=== PATIENT | female | born 2005 | race Caucasian/White ===

== ENCOUNTER 2025-04-27 14:48 | Emergency (ER) | payer OTHER, SELFPAY ==
--- NOTE | ~2025-04-27 | XR_ITS ---
EXAMINATION: XR chest 2V DATE: 04/27/2025 17:12 INDICATION: Near syncope. Fall. TECHNIQUE: PA and lateral views of the chest were obtained. COMPARISON: None FINDINGS: The lungs are clear with no focal airspace opacities, pulmonary edema, pleural effusion or pneumothorax. The cardiomediastinal silhouette is normal. Visualized bones and soft tissues are unremarkable. IMPRESSION: 1. No acute cardiopulmonary disease. Reviewed, dictated and finalized at location A. CONSULTING MANAGER
--- NOTE | ~2025-04-27 | XR_ITS ---
EXAMINATION: XR knee LT 3V DATE: 04/27/2025 17:12 INDICATION: Left knee pain post fall TECHNIQUE: Anteroposterior, oblique and crosstable lateral views of the left knee were obtained COMPARISON: None. FINDINGS: Alignment is normal. No fracture. Joint spaces appear normal on nonweightbearing imaging. No joint effusion/layering lipohemarthrosis. Soft tissues are unremarkable. IMPRESSION: 1. Negative left knee radiographs. Reviewed, dictated and finalized at location A. ER FITTER GAS
--- NOTE | ~2025-04-27 | CT_ITS ---
EXAMINATION: CT cervical spine wo con DATE: 04/27/2025 17:23 INDICATION: Fall with head injury TECHNIQUE: Computed tomography (CT) of the cervical spine was performed without intravenous contrast. Automated exposure control and iterative reconstruction technique were employed. The dose-length product was 476.63 mGy-cm. COMPARISON: None FINDINGS: 7 degrees cervical dextrocurvature. There is also mild reversal of the normal cervical lordosis which could be positional or due to muscle spasm. Vertebral body and disc heights are normal. 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 No central canal or neural foraminal stenosis. Cervical soft tissues are unremarkable. Visualized apices of lungs are clear. IMPRESSION: 1. Mild reversal of the normal cervical lordosis and 7 degree dextrocurvature which could be positional or due to muscle spasm. No other acute osseous abnormality. Reviewed, dictated and finalized at location A. TH AND SOCIAL CARE TEACHER IMPRESSION: 1. Mild reversal of the normal cervical lordosis and 7 degree dextrocurvature w hich could be positional or due to muscle spasm. No other acute osseous abnorma lity.
--- NOTE | ~2025-04-27 | CT_ITS ---
EXAMINATION: CT brain wo con DATE: 04/27/2025 17:16 INDICATION: Head injury. Near syncope. TECHNIQUE: Computed tomography (CT) of the head was performed without intravenous contrast. Sagittal and coronal reconstructions were performed. The mA was adjusted according to patient size. Iterative reconstruction technique was employed. The dose-length product was 605.33 mGy-cm. COMPARISON: None FINDINGS: No fracture. No acute intracranial hemorrhage, acute infarction or abnormal extra axial fluid collection. Ventricles are normal and symmetric. No mass/mass effect. The orbits, paranasal sinuses and mastoid air cells are normal. IMPRESSION: 1. Normal head CT. Reviewed, dictated and finalized at location A. FIC OPERATOR IMPRESSION: 1. Normal head CT.
[2025-04-27 14:49] VITALS: BP 131/73; PULSE 82; RESP 18; TEMP 36.9; O2SAT 100
--- OUTSIDE RECORDS SUMMARY | 2025-04-27 14:50 | XMS_ITS | Clinical Summary ---
Author Organization [facility] Address [address] [place] [address] Care Team Providers Care Valet Parking Attendant Name Role Phone Tenisha Fletcher MD Unavailable Sterling Monson MD [facility] Care Provider Source Comments [facility],non-owned Affiliates and Associated Physician Practices is amultiple site organization consisting of ambulatory clinics and hospital sitesin [place], [place], [place] and [place]. This disclosure is being madepursuant to the Care Everywhere program and may not contain all information available regarding this patient. Last updated 18.[facility] Allergies No known active allergies Medications * This document contains information received from the source organization and may not represent a complete record from that organization. * Be aware that medications may not be up to date on this document. Alwaysverify current medications with the patient. prazosin (MINIPRESS) 1 MG capsule Take 2 (two) capsules by mouth at bedtime Active etonogestrel (NEXPLANON) 68 MG implant 68 (sixty eight) mg by Subdermal route as directed Active omeprazole (PRILOSEC) 20 MG capsule Take 1 (one) capsule by mouth daily before breakfast Active sertraline (ZOLOFT) 25 MG tablet Take 1 (one) tablet by mouth once daily Active traZODone (DESYREL) 50 MG tablet Take 1 (one) tablet by mouth at bedtime Active QUEtiapine (SEROQUEL) 25 MG tablet Take 1 (one) tablet by mouth once daily 1 Active amoxicillin-cla vulanate (Augmentin) 875-125 MG tablet Take 1 (one) tablet by mouth 2 times daily FOR 10 DAYS 3 Active erythromycin (Romycin) 5 MG/GM ophthalmic ointment APPLY 1 LAYER TO BOTH UPPER EYELIDS TWICE DAILY FOR 2 WEEKS. 3 Active solifenacin (Vesicare) 10 MG tablet Take 1 (one) tablet by mouth once daily 30 tablet 4 Active Active Problems Problem Noted Date Diagnosed Date Bladder dysfunction 09/27/2020 Assessment & Plan (09/16/2022 1:46 PM CDT): A&P - bladder and obesity. Ortiz has continued to improve with the addition of vesicare. She has continued to have urinary frequency but this is much improved. She has not had a UTI since prior to the last OV. She is only currently having rare episodes of urinary incontinence but states that this does not have a negative impact on her. Her exam is grossly baseline, still unable to fully palpate her abdomen due to her protuberance. To discontinue macrodantin - patient has not had any recent UTIs and to reinitiate this pending patient begins to have UTIs again. Follow up in one year pending patient has a continued need for Vesicare. Plan: Timed voiding, Double voiding, Urinary recommendations including: voiding posture and relaxation techniques, bladder dietary and fluid intake recommendations, hygiene recommendations, Bowel health recommendations and Pharmaceutical management: Vesicare and stop Macrodantin Assessment & Plan (10/04/2021 9:03 AM CDT): A&P - bladder and bowel dysfunction. Ortiz has continued to do well since starting daily nitrofurantoin. No continued UTIs. She is having more sporadic episodes of incontinence while awake as well as increased urinary frequency. She has demonstrated continued weight gain as well and palpating her abdomen is increasingly difficult due to protuberance. Otherwise, her exam is grossly baseline. Continued follow up recommended. Plan: Timed voiding, Urinary recommendations including: voiding posture and relaxation techniques, bladder dietary and fluid intake recommendations, hygiene recommendations and Pharmaceutical management: Vesicare Assessment & Plan (09/27/2020 5:44 PM CDT): A&P - bladder and bowel dysfunction and morbid obesity. Ortiz has mildly improved with regards to her episodes of urinary incontinence since she was last seen in clinic. She is not having episodes of urine leakage as often as she previously had. She was recently hospitalized for a UTI but had not had a UTI while she was on her previously prescribed prophylactic antibiotic. Exam is grossly baseline. Imaging reviewed today does not demonstrate an anatomic cause for her recurrent UTIs. She would likely benefit from pelvic floor therapy. Additionally, she continues to have a steady weight gain. This likely causes additional pressure on her bladder causing some of her episodes of urinary incontinence. She would benefit from an improved diet and activity program. 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 UA with >100 WBCs, concerning for UTI vs pyelonephritis. She requires admission for IV antibiotic therapy and continued evaluation. German susceptible E coli isolated from urine, will complete 14 day course of Keflex followed by Macrobid prophylaxis and follow-up with urology in one month. Largely resolved clinical exam, good pain control and p.o.. Stable for discharge. 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 UA with >100 WBCs, concerning for UTI vs pyelonephritis. She requires admission for IV antibiotic therapy and continued evaluation.Urine cx growing gram negative bacilli in gram negative bacilli. Antibiotics changed to Rocephin from ampicillin. Has some flank and abdominal pain. No rebound or rigidity. GC-chlamydia and trichomonas negative. Urology informed of patient's admission. 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 UA with >100 WBCs, concerning for UTI vs pyelonephritis. She requires admission for IV antibiotic therapy and continued evaluation. Plan: - Admit to general medicine, Dr. Gonsales - IV Ampicillin q6h - IVFs with D5 NS at 120 ml/hr - Tylenol 650 mg q4h for pain - Continue home meds Lexapro, Atarax, Seroquel, Prazosin and Calcium citrate - Blood and urine culture pending - G/C and chlamydia pending - Urology consult - Pulse oximetry - Cardiorespiratory monitoring - VS q8h - I/Os - Regular diet History of pyelonephritis 07/11/2020 Assessment & Plan (07/11/2020 9:10 AM CDT): A&P - history of febrile UTIs as a toddler and child, now hospitalized recently twice for pyelonephritis in the last 3 months with one episode concerning for urosepsis. 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 VCUG repeated today due to concern for possible false negative on last in 2013 due to continued concerns with UTIs, but this was WNL without VUR or other abnormalities and with complete bladder emptying. Ortiz has had vague abdominal complaints with nausea for some time, with history of renal scan in 2019 that demonstrated delayed flow of the right kidney which cleared with Lasix. Some symptoms have improved with treatment of gastritis and likely lactose intolerance, but others have persisted. I discussed the above with Dr. Swann and we agreed that with her ongoing symptoms, recurrent pyelonephritis, it is recommended to evaluate this further with imaging to see if there may be a crossing vessel causing intermittent obstruction or other anomaly such as ectopic ureter. Possible that pyelonephritis occurred due to long-term delayed treatment of UTI as well, so we discussed calling with first signs of UTI for testing and treatment. Prophylactic antibiotics until next office visit: nitrofurantoin. Return to clinic with MRA abdomen with sedation. Parents to call at first sign of any urinary tract infections or symptoms of urinary tract infections, including dysuria, hematuria, urgency, malodorous urine, frequency, suprapubic pain, flank pain, or fever. Urinary incontinence 07/11/2020 Assessment & Plan (07/11/2020 9:06 AM CDT): A&P - morbid obesity, recurrent urinary tract infections, daytime incontinence and primary symptom(s) of urgency, infrequent voiding and poor fluid intake. Urinary incontinence is not continuous and could have a few etiologies such as hygiene and posture with tunneling urine, stress incontinence with obesity, and urge incontinence with infrequent voiding. Not as likely to be ectopic ureter causing incontinence due to history of dry intervals. Timed voiding, 5 times daily as least Urinary recommendations including: voiding posture techniques, bladder dietary and fluid intake recommendations (64 ounces+ water), hygiene recommendations including wiggle and wick Future considerations: correspondence specialist or healthy weight program, pelvic floor therapy for possible stress incontinence Sepsis due to urinary tract infection 06/29/2020 Assessment & Plan (07/01/2020 9:47 AM AERONAUTICAL ENGINEER): Assessment: Ortiz Alvares is a 15 year old female with history of duplicated R renal collecting system who presents with history, exam, and laboratory workup consistent with sepsis in the setting of likely pyelonephritis. Patient noted to be tachycardic, febrile, and intermittently hypotensive on admission concerning for possible septic shock. She responded well to fluid resuscitation. Has had some intermittent softer pressures while sleeping, but remaining well perfused, alert, oriented and BPs come up when awake. Of note, patient has had recent COVID infection. Workup thus far in the setting of her history is highly suspicious for UTI as primary diagnosis. However, if not showing clinical improvement and continue having issues with hypotension and fevers, despite fluid resuscitation, would consider MIS-C as possibility. Plan: -VS Q4H -CR Monitors -Manual Blood Pressures only Please -Monitor vitals closely, administer NS bolus as needed -SLIV Assessment & Plan (06/30/2020 9:27 AM AERONAUTICAL ENGINEER): Assessment: Ortiz Alvares is a 15 year old female with history of duplicated R renal collecting system who presents with history, exam, and laboratory workup consistent with sepsis in the setting of likely pyelonephritis. Patient noted to be tachycardic, febrile, and intermittently hypotensive on admission concerning for possible septic shock. Hypotension has been responsive to IV fluid boluses thus far. Of note, patient has had recent COVID infection. Workup thus far in the setting of her history is highly suspicious for UTI as primary diagnosis. However, if not showing clinical improvement and continue having issues with hypotension and fevers, despite fluid resuscitation, would consider MIS-C as possibility. Plan: -VS Q4H -CR Monitors -Manual Blood Pressures only Please -Monitor vitals closely, administer NS bolus as needed -Continue mIVF Acute pyelonephritis 05/04/2020 Assessment & Plan (07/01/2020 9:48 AM AERONAUTICAL ENGINEER): Assessment: 15 year old female with history of duplicated Right renal collecting system, congenital R hydroureteronephrosis and anxiety/depression who presented to the ED with concerns of fevers, dysuria, nausea/vomiting, flank and abdominal pain. Noted to have CVA tenderness on exam and was hypotensive in the ED before receiving 2L of NS boluses. Work up showed leucocytosis with neutrophilic predominance (WBC 13.5, N 92%), elevated inflammatory markers (CRP 5.7 and ESR 24). Urine HCG was negative. UA suggestive of infection (proteinuria, hematuria, 3+ leucocytes, >100 WBC, 1+ bacteria) and urine culture is pending. CT abdomen/pelvis was done to rule out perinephric abscess and showed R-sided hydroureteronephrosis without abscess on prelim read. Patient received a dose of tylenol, zofran and 2 g dose of Rocephin in the ED. Presentation and workup consistent with acute pyelonephritis. Urine Cx positive for german-senstive E. Coli. Plan: - SLIV - Tylenol q4H PRN for fever/pain - VS q4h - Strict I/O's - Regular diet as tolerated. - Cardiorespiratory monitoring - Transition to PO Keflex for 10 additional days after discharge - Continue home meds - Follow Blood Culture (Though pre-treated with Rocephin) - Urology will follow as outpatient for VCUG - Will need prophylactic antibiotics (nitrofurantoin or Bactrim) once tx course is complete Assessment & Plan (06/30/2020 9:29 AM AERONAUTICAL ENGINEER): Assessment: 15 year old female with history of duplicated Right renal collecting system, congenital R hydroureteronephrosis and anxiety/depression who presented to the ED with concerns of fevers, dysuria, nausea/vomiting, flank and abdominal pain. Noted to have CVA tenderness on exam and was hypotensive in the ED before receiving 2L of NS boluses. Work up showed leucocytosis with neutrophilic predominance (WBC 13.5, N 92%), elevated inflammatory markers (CRP 5.7 and ESR 24). Urine HCG was negative. UA suggestive of infection (proteinuria, hematuria, 3+ leucocytes, >100 WBC, 1+ bacteria) and urine culture is pending. CT abdomen/pelvis was done to rule out perinephric abscess and showed R-sided hydroureteronephrosis without abscess on prelim read. Patient received a dose of tylenol, zofran and 2 g dose of Rocephin in the ED. Presentation and workup consistent with acute pyelonephritis. Urine Cx positive for german-senstive E. Coli. Plan: - mIVFs with D5 NS w/ 20K @125ml/hr - Tylenol q4H PRN for fever/pain - VS q4h - Strict I/O's - Regular diet as tolerated. - Cardiorespiratory monitoring - Abx switched to ceftazidime yesterday for broadened coverage but today will switch back to IV Rocephin 2g q24H (first dose @2212 on 06/28) given german-sensitivity - Continue home meds - Follow Blood Culture (Though pre-treated with Rocephin) - Urology will follow as outpatient for VCUG - Will need prophylactic antibiotics (nitrofurantoin or Bactrim) once tx course is complete Assessment & Plan (06/29/2020 3:27 AM AERONAUTICAL ENGINEER): Assessment: 15 year old female with history of duplicated Right renal collecting system, congenital R hydroureteronephrosis and anxiety/depression who presented to the ED with concerns of fevers, dysuria, nausea/vomiting, flank and abdominal pain. Noted to have CVA tenderness on exam and was hypotensive in the ED before receiving 2L of NS boluses. Work up showed leucocytosis with neutrophilic predominance (WBC 13.5, N 92%), elevated inflammatory markers (CRP 5.7 and ESR 24). Urine HCG was negative. UA suggestive of infection (proteinuria, hematuria, 3+ leucocytes, >100 WBC, 1+ bacteria) and urine culture is pending. CT abdomen/pelvis was done to rule out perinephric abscess and showed R-sided hydroureteronephrosis without abscess on prelim read. Patient received a dose of tylenol, zofran and 2 g dose of Rocephin in the ED. Presentation and workup consistent with acute pyelonephritis. Other differentials include renal vs perinephric vs tubo-ovarian abscess (although unlikely given preliminary CT read), urethritis 2/2 STI, PID, appendicitis Of note, pt has past history of pyelonephritis (last grew german-susceptible E. coli) Plan: - Admit to General Medicine, Dr. Guzman - mIVFs with D5 NS w/ 20K @125ml/hr - Tylenol q4H PRN for fever/pain - VS q8h - Strict I/O's - Regular diet as tolerated. - Cardiorespiratory monitoring - Continue IV Rocephin 2g q24H (first dose @2212 on 06/28) - Continue home meds - Follow official CT scan read. - Labs including STI screen for GC/chalmydia and urine culture results. Assessment & Plan (05/05/2020 3:49 AM AERONAUTICAL ENGINEER): Assessment: 15 year old female with history of duplicated right renal collecting system and anxiety who was transferred from an OSH with concerns for acute pyelonephritis. She was recently diagnosed with a UTI 2 days ago, was prescribed keflex but only took one dose before returning to the hospital for worsening symptoms including tactile fevers, nausea, and low back pain. Patient had a fever (up to 103.4) at the OSH and endorses CVA tenderness. Patient received 2g dose of Rocephin at the OSH. Plan: - Admit to General Medicine, Dr. Ramsey - IVFs with D5 1/2 NS at 150 ml/hr - Alternating tylenol and motrin PRN for pain - Continue home meds - Labs including - UA - Pulse oximetry - Cardiorespiratory monitoring - VS q8h - I/Os - Regular diet - 2g Rocephin dose to be given 24hr from previous dose (last dose given @1730 on 05/04) Abdominal pain 09/04/2018 Acute gastritis without hemorrhage 12/05/2017 Assessment & Plan (12/05/2017 1:10 PM CDT): Pt with recent h/o costochondritis, treated with Ibuprofen, now with midline chest pain, nausea, change in appetite, worse at night when lying down. Concern for gastritis. Discussed supportive care, dietary changes, call if symptoms worsen, blood in stool or vomit, no improvement with starting Nexium. F/u in 1-2 weeks if no improvement in symptoms. Irregular periods 12/05/2017 Assessment & Plan (12/05/2017 1:14 PM CDT): Pt with previously regular periods, now with 2 periods in the past month. Concern for recent hot flashes for the past 2 weeks. Will obtain Thyroid levels today, if normal, refer to Adolescent. Hot flashes 12/04/2017 Assessment & Plan (12/05/2017 1:22 PM CDT): Pt with recent change, over the past 2 weeks, with feeling hot and flushed. At this time, she gets dizzy. No chest pain, no palpitations, no syncope. + night sweating See also irregular periods. Orthostatic BP normal here. Urine test negative. Will obtain: CMP, CBC, Thyroid levels. Consider EKG and refer to Adolescent if normal labs. Well adolescent visit 10/13/2017 Assessment & Plan (10/13/2017 1:12 PM CDT): Ortiz Alvares is here for her adolescent well child check and has obesity and normal development. Immunizations up to date - per mom. Dental referral for prevention Age appropriate anticipatory guidance provided Return for next well child check; sooner if concerns arise. Folliculitis of both axillae 10/13/2017 Assessment & Plan (10/13/2017 1:13 PM CDT): Bactroban Obesity (BMI 35.0-39.9 without comorbidity) 09/26 Assessment & Plan (10/13/2017 1:14 PM CDT): Discussed diet and exercise. Target no sugary drinks and increased daily exercise Goal no weight gain in next 6-12 months. 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 Vitals with tachycardia and intermittent hypotension that has responded to fluid boluses. Clinically appeared dehydrated. Improved with fluid resuscitation. Resolved. Assessment & Plan (06/29/2020 7:36 AM AERONAUTICAL ENGINEER): Assessment: Patient with poor PO intake and GI losses with frequent emesis and decreased UOP concerning for dehydration. Vitals with tachycardia and intermittent hypotension that has responded to fluid boluses. Clinically appears dehydrated. Requires IV fluids for further management. Plan: -mIVF -Strict I/Os -Assess need for repeat NS bolus Immunizations Immunization Administration Dates Next Due INFLUENZA VACCINE, QUADR. (F LUZONE; FLULAVAL; FLUARIX; AFLURIA QUADRIVALENT; 6MO+), 0.5 ML (IIV4) 07/01/2020(Deferred: Refused-Parent/Guardian) Family History Medical History Relation Name Comments Diabetes - Type 2 Maternal Grandfather Diabetes - Type 2 Maternal Grandmother None Known Mother Relation Name Status Comments Maternal Grandfather Maternal Grandmother Mother Social History Tobacco Use Types Packs/Day Years Used Date Smoking Tobacco: Passive Smo ke Exposure - Never Smoker Smokeless Tobacco: Never Tobacco Cessation:Counseling Given: No Alcohol Use Standard Drinks/Week Comments Never 0 (1 standard drink = 0.6 oz pur e alcohol) AUDIT-C Answer Date Recorded Q1: How often do you have a drink containing alcohol? Never 12/29/2022 Q2: How many drinks containi ng alcohol do you have on a typical day when you are drinking? Patient does not drink Q3: How often do you have si x or more drinks on one occasion? Never 12/29/2022 Comments No Sex and Gender Information Value Date Recorded Sex Assigned at Not on file Legal Sex Female 11:11 PM CDT Gender Identity Not on file Sexual Orientation Not on file Last Filed Vital Signs Vital Sign Reading Time Taken Comments Blood Pressure 125/65 12/29/2022 10:32 PM CDT Pulse 80 12/29/2022 10:29 PM CDT Temperature 37 C (98.6 F) 12/29/2022 10:29 PM CDT Respiratory Rate 20 12/29/2022 10:2 9 PM CDT Oxygen Saturation 98% 12/29/2022 10: 29 PM CDT Inhaled Oxygen Concentration 100% 07/2019 12:25 PM AERONAUTICAL ENGINEER Weight 130.2 kg (287 lb 0.6 oz) 023 10:35 PM CDT Height 166.5 cm (5' 5.55) 09/16/2022 8:21 AM CD T Body Mass Index 46.97 09/16/2022 8:21 AM CDT Plan of Treatment Health Maintenance Due Date Last Done Comments HIV SCREENING 2018 HPV VACCINE (1 - 3-dose series) 2018 MENINGOCOCCAL (Group B) VACCINE SHARED DECISION-MAKING (1 of 2 - Standard) 2019 HEPATITIS C SCREENING 01/05/2021 CHLAMYDIA/GONORRHEA SCREENING 08/19/2021 08/19/2020, 06/29/2020, 05/05/2020 DTAP/TDAP/TD VACCINES (1 - Tdap) 2022 HEPATITIS B VACCINE (1 of 3 - 19+ 3-dose series) 2022 PAP SMEAR 01/11/2024 DEPRESSION SCREENING 04/28/2024 10/13/2017 COVID-19 VACCINE (2024- season) 2024 INFLUENZA VACCINE (#1) 2024 9, 02/22/2015, 03/03/2014, Additional history exists ZOSTER VACCINE (1 of 2) 2053 HIB VACCINE Aged Out No longer eligi ble based on patient's age to complete this topic MENINGOCOCCAL GROUPS A/C/Y/W VACCINE Aged Out No longer eligible based on patient's age to complete this topic PNEUMOCOCCAL VACCINE Aged Out No long er eligible based on patient's age to complete this topic Medical Devices Implanted Type Area Automatic Lathe Operator Device Identifier Shelf Expiration Date Model / Serial / Lot Graft Bone Alfs Dbm 5ml Ptty Frzdr Implanted:Qty: 1 on 04/10/2017 by Stef Underwood MD at [facility] Left: Leg Nuvasive 06/26/2018 [id number] / / [id number] Procedures Procedure Name Priority Date/Time Associated Diagnosis Comments CHLAMYDIA + GC AMPLIFIED PROBE STAT 08/19/2020 10:10 PM CDT from Last 3 Months or Most Recently Relevant to Health Maintenance Results * CHLAMYDIA + GC AMPLIFIED PROBE (STL) (08/19/2020 10:10 PM CDT) Chlamydia Amplified Probe Negative Negative 08/20/2020 10:20 AM CDT [facility] GC Amplified Probe Negative Negative 08/20/2020 10:20 AM CDT [facility] Microbiology URINE / Unknown Collection / Unknown 08/19/2020 10:10 PM CDT 08/19/2020 10:24 PM CDT Narrative [facility] - 08/20/2020 10:20 AM CDT Results based on detection/no detection of ribosomal RNA by amplified method. us Ronnie Sandy MD LAB - MICROBIOLOGY ORDERABLES Final Result [facility] [address] [place] [address], [facility] [phone] from Last 3 Months or Most Recently Relevant to Health Maintenance Insurance [facility] Advance Directives * Full Code (Latest Code Status on File) Date Activated Date Inactivated Comments 08/19/2020 11:45 PM 08/21/2020 5:08 PM * Full Code Date Activated Date Inactivated Comments 06/29/2020 10:58 AM 07/01/2020 2:21 PM * Full Code Date Activated Date Inactivated Comments 05/05/2020 2:58 AM 05/05/2020 6:49 PM Care Teams Valet Parking Attendant Relationship Specialty Start Date End Date Sterling Monson MD [address] [place] [phone] PCP - General 12/07/20 Tenisha Fletcher MD [address] [place] [address] Student Resident 10/26/17
--- OUTSIDE RECORDS SUMMARY | 2025-04-27 14:50 | XMS_ITS | Encounter Summary ---
Author Organization [facility] Address [address] [place] [address] Care Team Providers Care Trolley Operator Name Role Phone Tenisha Fletcher MD Unavailable Sterling Monson MD [facility] Care Provider Encounter Details Date Type Department Care Team (Late st Contact Info) Description 08/10/2021 Telephone [facility] Pediatric[facility] - Urology [address] [place] [id number] Christine Velazco PA-C [address] [place] [phone] Social History Tobacco Use Types Packs/Day Years Used Date Smoking Tobacco: Passive Smo ke Exposure - Never Smoker Smokeless Tobacco: Never Alcohol Use Standard Drinks/Week Comments Never 0 (1 standard drink = 0.6 oz pur e alcohol) Comments No Sex and Gender Information Value Date Recorded Sex Assigned at Not on file Legal Sex Female 11:11 PM CDT Gender Identity Not on file Sexual Orientation Not on file documented as of this encounter Functional Status * Is person deaf or have serious hearing difficulty? Answer Date of Assessment Author No 08/19/2020 11:40 PM CDT Nadia Edmond RN * Is person blind or have serious difficulty seeing? Answer Date of Assessment Author No 08/19/2020 11:40 PM CDT Nadia Edmond RN * Does person have serious difficulty walking/climbing stairs? Answer Date of Assessment Author No 08/19/2020 11:40 PM CDT Nadia Edmond RN * Does person have difficulty dressing/bathing? Answer Date of Assessment Author No 08/19/2020 11:40 PM CDT Nadia Edmond RN * Does person have difficulty doing errands alone? Answer Date of Assessment Author No 08/19/2020 11:40 PM CDT Nadia Edmond RN documented as of this encounter Mental Status * Does person have difficulty concentrating/remembering/making decisions? Answer Entry Date Author No 08/19/2020 11:40 PM CDT Nadia Edmond RN documented in this encounter Miscellaneous Notes * Telephone Encounter - Gricel Estes RN - 08/10/2021 9:12 AM CDT Scheduled patient for appointment on August 30, 2021 at 0945 with KIRK Umaña. Instructed patient to come with a full bladder. documented in this encounter Plan of Treatment Not on file documented as of this encounter Visit Diagnoses Not on filedocumented in this encounter Care Teams Trolley Operator Relationship Specialty Start Date End Date Sterling Monson MD [address] [place] [phone] PCP - General 12/07/20 Tenisha Fletcher MD [address] [place] [address] Student Resident 10/26/17 documented as of this encounter
--- OUTSIDE RECORDS SUMMARY | 2025-04-27 14:50 | XMS_ITS | Encounter Summary ---
Author Organization [facility] Address [address] [facility] [place] [address] Care Team Providers Care Associate Embalmer/Funeral Director Name Role Phone Tenisha Fletcher MD Unavailable Sterling Monson MD Prima ry Care Provider Unknown, Provider Primary Care Provider Unavaila ble Sterling Monson MD Prima ry Care Provider Encounter Details Date Type Department Care Team (Late st Contact Info) Description 05/31/2019 Telephone [facility] Pediatrics - [address] [phone] Mirna Shin MD [address] [place] [phone] Social History Tobacco Use Types Packs/Day Years Used Date Smoking Tobacco: Never Smokeless Tobacco: Never Alcohol Use Standard Drinks/Week Comments No 0 (1 standard drink = 0.6 oz pur e alcohol) Comments No Sex and Gender Information Value Date Recorded Sex Assigned at Not on file Legal Sex Female 11:11 PM CDT Gender Identity Not on file Sexual Orientation Not on file documented as of this encounter Miscellaneous Notes * Telephone Encounter - Charley Rehman RN - 06/07/2019 3:56 PM CLINICAL PHARMACY TECHNICIAN Verified orders in epic. Prep letter mailed to home address. ICAL PHARMACY TECHNICIAN * Telephone Encounter - Staci Milner - 06/07/2019 2:49 PM CST EGD/Colon rescheduled for Friday06/30/19 at 11:[address] Shin. Mom already has all instructions. ICAL PHARMACY TECHNICIAN * Telephone Encounter - Staci Milner - 05/31/2019 3:52 PM CST Endo called to have us reschedule pt's EGD/Colon, since pt did not perform any of the prep. Mom's NEW number is [phone]. ICAL PHARMACY TECHNICIAN documented in this encounter Plan of Treatment Not on file documented as of this encounter Visit Diagnoses Not on filedocumented in this encounter Care Teams Associate Embalmer/Funeral Director Relationship Specialty Start Date End Date Sterling Monson MD [address] [place] [phone] PCP - General Pediatrics 07/27/18 09/20/20 Unknown, Provider [address] [place] [phone] PCP - General 11/29/2012/06 Sterling Monson MD [address] [place] [phone] PCP - General 12/07/20 Tenisha Fletcher MD [facility] [place] [phone] Student Resident 10/26/17 documented as of this encounter
--- OUTSIDE RECORDS SUMMARY | 2025-04-27 14:50 | XMS_ITS | Data Portability ---
Author Organization [place] [facility] [employer], Main Office Address [address] [place] [address] Care Team Providers Care Track Repair Worker Name Role Phone STALIN HELM Primary Care Provider STALIN HELM Referring Provider [phone] Assessment No assessment recorded. Plan of Treatment Reminders Order Date Submit Date Provider Last Modified By Organization Details Last Modified Time Details Appointments None recorded. Lab STEFANIE (antinuclea r antibodies) screen, ifa, serum 2024 025 [place] [address] 4 [facility] (Lab), [address] [place], [address], 5 11:40:23 ccp (cyclic citrullinat ed peptide) iga+igg, serum 2024 025 [email or web address] 4 [facility] (Lab), [address] [place], [address], 5 11:40:01 rf (rheumatoid factor), serum 2024 025 [place] [address] 4 [facility] (Lab), [address] [place], [address], 5 11:39:39 vitamin D, 25-hydroxy, total, serum 2023 024 [email or web address] 2 [facility] (Lab), [address] [place], [address], 4 08:50:45 vitamin B12 + folate, serum or blood 2023 024 [email or web address] 2 [facility] (Lab), [address] [place], [address], 4 08:50:45 lipid panel, serum [address] (Lab), [address] [place], [address], 3 11:35:51 CMP, serum or plasma [address] (Lab), [address] [place], [address], 3 11:35:51 CK (creatine kinase), total, serum [address] (Lab), [address] [place], [address], 3 11:35:51 vitamin B12 + folate, serum or blood [address] (Lab), [address] [place], [address], 3 11:35:50 vitamin D, 25-hydroxy, total, serum [address] (Lab), [address] [place], [address], 3 11:35:50 magnesium, serum or plasma [address] (Lab), [address] [place], [address], 3 11:35:50 TSH, serum or plasma [address] (Lab), [address] [place], [address], 3 11:35:51 glycohemogl obin, total, blood 2022 023 [email or web address] 11 [facility] ([facility]), [address], [place], [address], 3 11:35:50 Referral gynecologis t referral - Needs a pap smear . Thank you 2022 023 [email or web address] Zeina Medina MD, [address], [address], [place], [address], 4 10:03:34 Procedures None recorded. Surgeries None recorded. Imaging None recorded. Medication Orders ondansetron 8 mg disintegrat ing tablet 2024 025 [facility] #84846, [address], [id number], 5 09:53:23 Depo-Medrol 80 mg/mL suspension for injection 2024 025 [email or web address] 4 Not available 5 10:06:24 prednisone 20 mg tablet 2024 025 [facility] #98994, [address] , [place], [place], [id number], 5 09:55:14 cyclobenzap rine 10 mg tablet 2024 025 [facility] #05559, [address] , [place], [place], [id number], 5 09:56:09 metronidazo le 0.75 % topical gel 2024 025 [email or web address] 4 [facility] #90643, [address] , [place], [place], [id number], 5 09:39:22 pantoprazol e 40 mg tablet,she yed release 2024 025 [facility] #14168, [address], [place], [place], [id number], 5 09:26:49 buspirone 10 mg tablet [email or web address] [place] [address] Store #50189, [address] [place], [id number], 5 09:39:14 solifenacin 10 mg tablet 2024 025 [facility] #37790, [address] [place], [id number], 5 09:26:48 cholecalcif aura (vitamin D3) 25 mcg (1,000 unit) tablet 2024 025 [facility] #44348, [address] [place], [id number], 5 09:26:47 bupropion HCl XL 150 mg 24 hr tablet, extended release 2024 025 [facility] #08379, [address] [place], [id number], 5 09:27:01 cyanocobala min (vit B-12) 1,000 mcg sublingual tablet 2024 025 [facility] #40581, [address] [place], [id number], 5 09:26:47 solifenacin 10 mg tablet 2023 024 [facility] #39135, [address] [place], [id number], 4 14:19:49 losartan 25 mg tablet 2023 [facility] #82953, [address], [place], [place], [id number], 4 11:06:13 cholecalcif aura (vitamin D3) 25 mcg (1,000 unit) tablet 2023 [facility] #99818, [address], [place], [place], [id number], 4 11:06:11 bupropion HCl XL 150 mg 24 hr tablet, extended release 2023 [facility] #08247, [address], [place], [place], [id number], 4 11:06:12 cyanocobala min (vit B-12) 1,000 mcg sublingual tablet 2023 024 [facility] #17012, [address], [place], [place], [id number], 4 11:06:10 cholecalcif aura (vitamin D3) 25 mcg (1,000 unit) tablet 2022 023 [facility] #36723, [address], [place], [place], [id number], 3 10:45:47 cyanocobala min (vit B-12) 1,000 mcg sublingual tablet 2022 023 [facility] #23521, [address], [place], [place], [id number], 3 10:46:42 losartan 25 mg tablet 2022 023 [facility] #28957, [address], [place], [place], [id number], 3 10:44:51 bupropion HCl XL 150 mg 24 hr tablet, extended release 2022 023 [facility] #47619, [address], [place], [place], [id number], 3 10:44:52 Patient TargetsNo targets recorded. Patient Instructions Encounter Date Encounter Id Patient Instructions Last Modified By Organization Details Last Modified Time 07/05/2024 [id number] counseled , good insight, no si/hi. get Sandeep headspace or Insight Timer . 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 Thank you Referring Physician: Stalin Helm, Family Medicine, Encounter Date: 04/10/2023 Results Created Date Observation Date Name Description Value Unit Range Abnormal Flag Note LastModifiedBy Organization Detail LastModifiedTime Result Notes None recorded. Problems Name Problem SNOMED Code Status Onset Date Resolution Date Notes Provider Name and Address Organization Details Recorded Time Essential hypertension 93548971 Active 2022 NAMAN Mosqueda [email or web address], [place], [address], [facility] 3 11:44:15 Administration of influenza vaccine Active 2022 NAMAN Mosqueda [address], [address], [place], [address], [facility] 3 11:45:57 Depressive disorder 54661211 Active 2022 NAMAN Mosqueda [address], [address], [place], [address], [facility] 3 10:43:44 At increased risk of nutritional deficit 838340368 Active 2022 NAMAN Mosqueda [address], [address], [place], [address], [place] [facility] 3 10:47:30 Family history of diabetes mellitus 575161794 Active 2022 both sides NAMAN Mosqueda [address], [address], [place], [address], [place] [facility] 3 10:51:06 Hyperlipidemia screening Active 2022 NAMAN Mosqueda [address], [address], [place], [address], [place] [facility] 3 10:49:32 Vitamin D below reference range 847014427 Active 2022 NAMAN Mosqueda [address], [address], [place], [address], [place] [facility] 3 10:44:54 Serum vitamin B12 below reference range 643040385 Active 2022 NAMAN Mosqueda [address], [address], [place], [address], [place] [facility] 3 10:45:58 Screening for malignant neoplasm of cervix Active 2022 NAMAN Mosqueda [address], [address], [place], [address], [place] [facility] 3 10:47:33 Overactive urinary bladder 560657413 Active 2023 NAMAN Mosqueda [address], [address], [place], [address], [place] [facility] 4 14:18:29 Rosacea 375497686 Active 2024 NAMAN Mosqueda [address], [address], [place], [address], [place] [facility] 5 09:21:38 Anxiety 15450408 Active 2024 NAMAN Mosqueda [address], [address], [place], [address], [facility] 5 09:21:59 Gastroesophage al reflux disease 241047644 Active 2024 NAMAN Mosqueda [address], [address], [place], [address], [facility] 5 09:25:42 Dry eyes 417257675 Active 2024 NAMAN Mosqueda [address], [address], [place], [address], [facility] 5 09:27:02 Adult health examination Active 2024 NAMAN Mosqueda [address], [address], [place], [address], [facility] 5 16:03:50 Nausea 252063041 Active 2024 NAMAN Mosqueda [address], [address], [place], [address], [facility] 5 09:52:38 Strain of fascia of neck 337142434 Active 2024 NAMAN Mosqueda [address], [address], [place], [address], [facility] 5 09:53:47 Notes:on [employer], to be re moved in April 2023 Problem Notes None recorded. Medical Equipment None Reported. Allergies No known drug allergies Medications Name Sig Start Date Stop Date Status Note LastModified by Organization Details LastModified Time quetiapin e 25 mg tablet 02/13 completed Not Available Not Available Not Available cyclobenz aprine 10 mg tablet TAKE 1 TABLET BY MOUTH EVERY DAY AT BEDTIME active Not Available Not Available No t Available amoxicill in 500 mg capsule TAKE ONE CAPSULE BY MOUTH EVERY 8 HOURS FOR 10 DAYS 09/14 completed Not Available Not Available Not Available clindamyc in HCl 300 mg capsule TAKE 1 CAPSULE BY MOUTH EVERY 6 HOURS FOR 10 DAYS 02/13 completed Not Available Not Available Not Available citalopra m 40 mg tablet 02/13 completed Not Available Not Available Not Available trazodone 50 mg tablet 02/13 completed Not Available Not Available Not Available triamcino lone acetonide 0.5 % topical cream 02/13 completed Not Available Not Available Not Available ibuprofen 800 mg tablet TAKE 1 TABLET BY MOUTH THREE TIMES DAILY 02/13 completed Not Available Not Available Not Available citalopra m 10 mg tablet 02/13 completed Not Available Not Available Not Available hydrocodo ne 5 mg-acetam inophen 325 mg tablet TAKE 1 TABLET BY MOUTH EVERY 6 HOURS NEEDED FOR PAIN 09/14 completed Not Available Not Available Not Available prazosin 1 mg capsule 02/13 completed Not Available Not Available Not Available prednison e 20 mg tablet TAKE 2 TWICE DAILY X2 DAYS THEN 1 TWICE DAILY X5 DAYS THEN 1/2 TWICE DAILY X2 DAYS THEN 1/2 X1 DAY. 2ND DOSE AT NOON DAILY active Not Available Not Available No t Available hydroxyzi ne HCl 50 mg tablet 02/13 completed Not Available Not Available Not Available ciproflox acin 500 mg tablet TAKE 1 TABLET BY MOUTH EVERY 12 HOURS FOR 3 DAYS 07/05 completed Not Available Not Available Not Available quetiapin e 100 mg tablet 02/13 completed Not Available Not Available Not Available bupropion HCl SR 100 mg tablet,12 hr sustained -release 02/13 completed Not Available Not Available Not Available ondansetr on 8 mg disintegr ating tablet DISSOLVE 1 TABLET ON THE TONGUE TWICE DAILY NEEDED active Not Available Not Available No t Available Depo-Medr ol 80 mg/mL suspensio n for injection Take 1 mL by injectio n route. 2024 active Not Available Not Available Not Avai lable meloxicam 7.5 mg tablet 02/13 completed Not Available Not Available Not Available citalopra m 20 mg tablet 02/13 completed Not Available Not Available Not Available Nortrel 1/35 (28) 1 mg-35 mcg tablet 02/13 completed Not Available Not Available Not Available trazodone 100 mg tablet 02/13 completed Not Available Not Available Not Available pantopraz ole 40 mg tablet,de layed release TAKE 1 TABLET BY MOUTH EVERY DAY BEFORE A MEAL active Not Available Not Available No t Available erythromy andrea 5 mg/gram (0.5 %) eye ointment APPLY 1 LAYER TO BOTH UPPER EYELIDS TWICE DAILY FOR 2 WEEKS. 07/05 completed Not Available Not Available Not Available neomycin- polymyxin -dexameth 3.5 mg/mL-10, 000 unit/mL-0 .1% eye drops SHAKE LIQUID AND INSTILL 1 DROP IN BOTH EYES TWICE DAILY active Not Available Not Available No t Available buspirone 10 mg tablet Take 1 tablet twice a day by oral route after meal(s) for 30 days. 09/14 completed Not Available Not Available Not Available hyoscyami ne 0.125 mg sublingua l tablet 02/13 completed Not Available Not Available Not Available losartan 25 mg tablet active Not Available Not Available Not Available omeprazol e 20 mg capsule,d elayed release 02/13 completed Not Available Not Available Not Available cyanocoba ahsan (vit B-12) 1,000 mcg sublingua l tablet Place 1 tablet twice a day by sublingu al route for 30 days. 2024 active Not Available Not Available Not Avai lable mupirocin 2 % topical ointment 02/13 completed Not Available Not Available Not Available gabapenti n 100 mg capsule 02/13 completed Not Available Not Available Not Available ibuprofen 600 mg tablet TAKE 1 TABLET BY MOUTH EVERY 6 HOURS NEEDED WITH FOOD 02/13 completed Not Available Not Available Not Available polyethyl demarco glycol 3350 17 gram/dose oral powder 02/13 completed Not Available Not Available Not Available SSD 1 % topical cream 02/13 completed Not Available Not Available Not Available hydroxyzi ne HCl 10 mg tablet 02/13 completed Not Available Not Available Not Available sertralin e 50 mg tablet 02/13 completed Not Available Not Available Not Available metronida zole 0.75 % topical gel APPLY A THIN LAYER TO THE AFFECTED AREA(S) face BY TOPICAL ROUTE 2 TIMES PER DAY IN THE MORNING AND EVENING 09/14 completed Not Available Not Available Not Available loratadin e 10 mg tablet 02/13 completed Not Available Not Available Not Available amoxicill in 875 mg-potass ium clavulana te 125 mg tablet TAKE 1 TABLET BY MOUTH TWICE DAILY FOR 7 DAYS 02/13 completed Not Available Not Available Not Available buspirone 15 mg tablet 02/13 completed Not Available Not Available Not Available hydroxyzi ne pamoate 25 mg capsule 02/13 completed Not Available Not Available Not Available escitalop miller 20 mg tablet 02/13 completed Not Available Not Available Not Available bupropion HCl XL 150 mg 24 hr tablet, extended release TAKE 1 TABLET BY MOUTH EVERY DAY IN THE MORNING active Not Available Not Available No t Available solifenac in 10 mg tablet TAKE 1 TABLET BY MOUTH EVERY DAY active Not Available Not Available No t Available chlorhexi dine gluconate 0.12 % mouthwash SWISH AND SPIT 15 ML BY MOUTH FOR 30 SECONDS THREE TIMES DAILY FOR 7 DAYS 02/13 completed Not Available Not Available Not Available quetiapin e 50 mg tablet 02/13 completed Not Available Not Available Not Available cholecalc iferol (vitamin D3) 25 mcg (1,000 unit) tablet Take 1 tablet every day by oral route with meal(s) for 30 days. 2024 active Not Available Not Available Not Avai lable Estarylla 0.25 mg-0.035 mg tablet 02/22 completed has Nexplano n in left upper arm Not Available Not Available Not Available Nexium 24HR 20 mg capsule,d elayed release 02/13 completed Not Available Not Available Not Available Fluarix Quad (PF) 60 mcg (15 mcg x 4)/0.5 mL IM syringe 09/14 completed Not Available Not Available Not Available Vitals Date Recorded Body weight Heart rate Respiratory rate Oxygen saturation Body temperature Systolic And Diastolic Provider Name and Address Organization Details Last Updated DateTime 5 883079. 91 g 82 /min 18 /min 97 % 98.3 [degF] 128/80 mm[Hg] Esther Romoarity [place] [employer] [facility] [employer] [facility] 5 09:14:46 Date Recorded Body weight Body temperature Oxygen saturation Heart rate Systolic And Diastolic Provider Name and Address Organization Details Last Updated DateTime 5 526197. 79 g 97.3 [degF] 98 % 87 /min 122/84 mm[Hg] JOSHUA Dye [facility] [employer] [facility] 5 09:41:47 Date Recorded Body height Body mass index (BMI) [Percentile] Per age and sex Body mass index (BMI) Body weight Body temperature Heart rate Oxygen saturation Systolic And Diastolic Provider Name and Address Organization Details Last Updated DateTime 3 162.56 cm 99 % 48.7 kg/m2 787552. 23 g 97.9 [degF] 70 /min 98 % 122/88 mm[Hg] Patricia Cabrera [place] [employer] [facility] [employer] 3 10:30:38 Date Recorded Body height Body mass index (BMI) Body mass index (BMI) [Percentile] Per age and sex Body weight Body temperature Heart rate Oxygen saturation Systolic And Diastolic Provider Name and Address Organization Details Last Updated DateTime 3 162.56 cm 48.1 kg/m2 99 % 587722. 86 g 97.5 [degF] 90 /min 97 % 128/76 mm[Hg] Patricia Cabrera [place] [employer] [facility] [employer] 3 10:38:55 Social History Question Answer Notes LastModified by [employer] Details LastModified Time Tobacco Smoking Status Never Smoker Patricia Cabrera MA [facility] [employer] 02/13/2023 11:37:56 What Is Your Level Of Caffeine Consumption? Occasional [email or web address] Information not available 02/13/2023 Do You Use Your Seat Belt Or Car Seat Routinely? Yes [email or web address] Information not available 02/13/2023 Do You Participate In Social Media? No [email or web address] Information not available 02/13/2023 Sex: Unknown Functional Status Question Answer Note LastModified by [employer] Details LastModified Time Do you use any illicit or recreational drugs? No [email or web address] Information not available 02/13/2023 Do you or have you ever used any other forms of tobacco or nicotine? No Information not available 02/13/2023 What is your level of alcohol consumption? None [email or web address] Information not available 02/13/2023 Mental Status Question Answer Note LastModified by Organization D etails LastModified Time Do you feel stressed (tense, restless, nervous, or anxious, or unable to sleep at night)? [id number] [email or web address] Information not available 02/13/2023 Family History Nothing Reported. Medical History No medical history recorded. Gynecological HistoryNo gynecological history recorded. Obstetrics History GPAL:G 0 P 0 0 0 0 Immunizations Vaccine Type Date Status Note Provider Nam e and Address Organization Details Recorded Time Influenza, split virus, quadrivalent, PF 02/13/2023 completed NAMAN Mosqueda [address], [address], [place], [address], [facility] [employer] 02/17/2023 16:06:48 Past Encounters Encounter ID Performer Location Encounter Start Date Encounter Closed Date Diagnosis/Indication Diagnosis SNOMED-CT Code Diagnosis ICD10 Code Diagnosis IMO Codes Diagnosis Note [id number] Vinny Ureña MD [facility] [address] [place] [address] 02/13/2023 11:25:20 02/13/2023 12:01:21 Essential hypertension 29406775 I10 Administra tion of influenza vaccine 16836943 Z23 [id number] Vinny Ureña MD [facility] [place] [address] 03/13/2023 10:21:49 03/13/2023 10:52:56 Essential hypertension 80160823 I10 Depressive disorder 3548 9007 F32.A At replaced by [facility] risk of nutritional deficit 159192436 Z91.89 Family his tory of diabetes mellitus 549655880 Z83.3 Hyperlipid emia screening 065415144 Z13.544 [id number] Vinny Ureña MD [facility] [address] [place] [address] 04/10/2023 10:33:27 04/10/2023 10:50:59 Vitamin D below reference range 861385263 E55.9 Serum serenity min B12 below reference range 221589310 R79.89 Screening for malignant neoplasm of cervix 067234412 Z12.4 [id number] Fransico Xie MD [facility] [address] [place] [address] 02/23/2024 10:50:28 02/23/2024 11:17:49 Essential hypertension 68217706 I10 Serum serenity min B12 below reference range 140772085 R79.89 Vitamin D below reference range 009891778 E55.9 Depressive disorder 3548 9007 F32.A Overactive urinary bladder 639511670 N32.81 [id number] Fransico Xie MD [address] [address] 07/05/2024 09:06:38 07/05/2024 16:47:34 Anxiety 98656088 F41.9 Essential hypertension 20635442 I10 Rosacea 047487892 L71.9 Depressive disorder 3548 9007 F32.A Vitamin D below reference range 923471620 E55.9 Serum serenity min B12 below reference range 382949486 R79.89 Overactive urinary bladder 973075432 N32.81 Gastroesop hageal reflux disease 618567441 K21.9 Dry eyes 917538602 H04.1 23 Adult heal th examination 634183489 Z00.00 [id number] Fransico Xie MD [facility]_[address] [address] 09/14/2024 09:33:53 09/14/2024 10:23:31 Nausea 055007920 R11.0 19451579 Strain of fascia of neck 395857679 S16.1XXA 5886558481 Health Concerns Section Related Observation LastModified by Organization Detai ls LastModified Time None Recorded Concern Status LastModified by Organization Details LastModified Time None Recorded Advance Directives Directive None Recorded Payers Insurance Date Sequence Insurance Name Policy Number Policy Juárez Covered Member ID Juárez Member ID Guarantor Name 09/14/2024 1 [facility] PRIOR TO 10/26/2020 (MEDICAID REPLACEMENT - HMO) Ortiz Bower [id number] Sri Bower 09/21/2024 1 [facility] ON OR AFTER 10/26/20 (MEDICAID REPLACEMENT - HMO) Ortiz Bower [id number] Sri Bower Notes Date Note Type Note Provider Name and Address Organization Details Recorded Time 03/13/2023 text/html ROS as noted in the HPI needs refills NAMAN Mosqueda [address], [place], [address], [facility] 03/17/2023 16:18:45 04/10/2023 text/html ROS as noted in the HPI here to review lab results NAMAN Mosqueda [address], [place], [address], [facility] 04/21/2023 19:12:05 02/23/2024 text/html ROS as noted in the HPI no changes NAMAN Mosqueda [address], [place], [address], [facility] 03/21/2024 17:26:39 07/05/2024 text/html ROS as noted in the HPI traveling a lot , more anxiety , chest heavy , hard to breathe . lost grandpa a few years back . NAMAN Mosqueda [address], [place], [address], [facility] 07/11/2024 16:04:15 09/14/2024 text/html ROS as noted in the HPI nausea, knots on back of neck at hairline . no injury. denies any chance of NAMAN Mosqueda [address], [place], [address], [facility] 09/21/2024 09:44:14 OBGyn Episode No OBEpisode recorded.
--- NOTE | 2025-04-27 16:44 | ECG_ITS ---
Test Date: 2025-04-27 16:52:22 Measurements Intervals [place] Rate: 72 P: 58 MN: 152 QRS: 30 QRSD: 92 T: 8 QT: 370 QTc: 406 Interpretive Statements SINUS RHYTHM WITH MARKED SINUS ARRHYTHMIA BORDERLINE T WAVE ABNORMALITY- INFERIOR LEADS BASELINE ARTIFACT- I, II, III, AVR, AVL, AVF BORDERLINE ECG No previous ECG available for comparison Electronically Signed On 04-27-2025 21:31:14 LINKER UP by Rafa Stuart D.O.
--- NOTE | 2025-04-27 16:52 | ED.FALL ---
HPI - Fall General Chief Complaint: Fall <DAYANNA Norman Last Filed: 04/27/25 16:58> Stated Complaint: fall due to dizziness, [place] <DAYANNA Norman Last Filed: 04/27/25 16:58> Time Seen by Provider: 04/27/25 16:45 <DAYANNA Norman Last Filed: 04/27/25 16:58> Focused HPI: Patient is a 20-year-old female who presents the ED via EMS with report of dizziness, head injury. Patient reports history of occasional dizziness over the past 1 year. States she has seen her PCP for this and been prescribed a dissolvable pill to be taken as needed for her dizziness. States she has not had any issues with this recently. She began feeling dizzy this morning. Attempted getting ready for work and states she fell over due to the dizziness. Had a near syncopal episode. Does not believe she fully lost consciousness. Her family attempted to help her back into bed and she had another episode. EMS was then called. Patient denies feeling significantly dizzy at the moment. She does complain of pain to her head, neck, left knee. Denies chest pain, shortness breath, palpitations, focal numbness or weakness. GENERAL: Well-appearing, morbidly obese with BMI of 49.0, and in no acute distress. HEAD: Normocephalic, atraumatic. No contusions NECK: No significant midline spinal tenderness CHEST: Clear to auscultation. ?No respiratory distress. HEART: Regular rate and rhythm.? NEURO: ?Alert and oriented x3. No focal deficits. Patient screened in triage and initial orders placed.? ?Additional care and disposition to be based upon?diagnostic testing and treatment. <DAYANNA Norman Last Filed: 04/27/25 16:58> Source: patient <DAYANNA Norman Last Filed: 04/27/25 16:58> Mode of arrival: EMS <DAYANNA Norman Last Filed: 04/27/25 16:58> Limitations: no limitations <DAYANNA Norman Last Filed: 04/27/25 16:58> Related Data Allergies/Adverse Reactions: Allergies Allergy/AdvReac Type Severity Reaction Status Date / Time No Known Allergies Allergy Verified 04/27/25 14:52 <Cris Antoine PA-C - Last Filed: 04/27/25 16:58> Review of Systems Review of Systems: All systems reviewed & are unremarkable except as noted in HPI and below <Kaylin House PA-C - Last Filed: 04/27/25 20:01> [facility] Past Medical History Medical History: Medical History (Updated 04/27/25 @ 20:01 by Kaylin House PA-C) GERD (gastroesophageal reflux disease) Hypertension Depression <Cris Antoine PA-C - Last Filed: 04/27/25 16:58> Exam Narrative: GENERAL: Well-appearing, well-nourished, and in no acute distress. HEAD: Normocephalic, atraumatic. EYES: PERRLA and EOMI. ENT: Nares clear, no rhinorrhea or epistaxis. Mucous membranes moist. Oropharynx without tonsillar hypertrophy exudate or other lesions. Bilateral TMs pearly petit non-bulging NECK: Supple. No adenopathy or masses. CHEST: Clear to auscultation. No respiratory distress. No wheezes rales or rhonchi HEART: Regular rate and rhythm. No murmur heard. Normal peripheral pulses. ABDOMEN: Soft, nontender, nondistended, normal active bowel sounds. EXTREMITIES: Normal range of motion. No edema. Strength equal in bilateral upper and lower extremities (5/5) SKIN: Warm, dry, no rash. NEURO: No focal deficits. Alert and oriented x3. Cranial nerves 2-12 grossly intact PSYCH: Normal mood and affect <Kaylin House PA-C - Last Filed: 04/27/25 20:01> Course Vital Signs Vital signs: Vital Signs Temperature 98.4 F 04/27/25 14:49 Pulse Rate 82 04/27/25 14:49 Respiratory Rate 18 04/27/25 14:49 Blood Pressure 131/73 04/27/25 14:49 Pulse Oximetry 100 04/27/25 14:49 Oxygen Delivery Room Air 04/27/25 14:49 Temperature 98.4 F 04/27/25 14:49 Pulse Rate 88 04/27/25 18:58 Respiratory Rate 16 04/27/25 18:50 Blood Pressure 118/80 04/27/25 18:58 Pulse Oximetry 99 04/27/25 18:50 Oxygen Delivery Room Air 04/27/25 18:50 <Cris Antoine PA-C - Last Filed: 04/27/25 16:58> Vital Signs Temperature 98.4 F 04/27/25 14:49 Pulse Rate 82 04/27/25 14:49 Respiratory Rate 18 04/27/25 14:49 Blood Pressure 131/73 04/27/25 14:49 Pulse Oximetry 100 04/27/25 14:49 Oxygen Delivery Room Air 04/27/25 14:49 Temperature 98.4 F 04/27/25 14:49 Pulse Rate 88 04/27/25 18:58 Respiratory Rate 16 04/27/25 18:50 Blood Pressure 118/80 04/27/25 18:58 Pulse Oximetry 99 04/27/25 18:50 Oxygen Delivery Room Air 04/27/25 18:50 <Kaylin House PA-C - Last Filed: 04/27/25 20:01> MDM MDM Narrative Medical decision making narrative: MSE by DIANN in triage <DAYANNA Norman Last Filed: 04/27/25 16:58> MSE by DIANN in triage Patient presents the emergency department for near syncopal episode. Reports she has been having trouble with dizziness over the last year. She was getting ready to go out. Walked out of her room. [place] very dizzy, hit her head on a cabinet. Dizziness has resolved. Now has a mild headache. Her vitals are stable. She is neurologically intact. Hydrated with a L of fluids in the ER. Cbc and metabolic panel without concerning findings. EKG without acute ST changes, baseline troponin is negative. CT brain and cervical spine without acute findings. Chest x-ray without acute cardiopulmonary abnormality. Patient updated on her workup and agrees with plan of care. Instructed on close follow-up with PCP <DAYANNA Sharif Last Filed: 04/27/25 20:01> Differential Diagnosis Differential Diagnosis: syncope, near-syncope, orthostatic hypotension, electrolyte derangement, dehydration, head injury, subdural hemorrhage, contusion <Kaylin House PA-C - Last Filed: 04/27/25 20:01> Lab Data MDM Lab Attestation statement: I personally reviewed the patient's lab results. <Kaylin House PA-C - Last Filed: 04/27/25 20:01> Result diagrams: 04/27/25 16:49 04/27/25 16:49 <Cris Antoine PA-C - Last Filed: 04/27/25 16:58> Labs: Lab Results 04/27/25 Range/Units 16:49 WBC 9.5 (4.5-10.0) K/mm3 RBC 5.12 (4.2-5.4) M/mm3 Hgb 14.2 (12.0-15.0) g/dL Hct 42.3 (37.0-47.0) % MCV 82.6 (80-100) fl MCH 27.7 (26-34) pg MCHC 33.6 (32-36) g/dl RDW 12.5 (11.5-14.5) % Plt Count 262 (150-375) k/mm3 MPV 11.6 H (7.4-10.4) fl Immature Gran % (Auto) 0.3 (0-0.5) % Neut % (Auto) 74.7 H (45.5-73.1) % Lymph % (Auto) 19.8 (18.3-44.2) % Providence % (Auto) 4.0 (2.6-8.5) % Eos % (Auto) 0.7 (0-4.4) % Baso % (Auto) 0.5 (0.2-1.2) % Lymph # (Auto) 1.87 (0.9-3.2) K/mm3 [place] # (Auto) 0.4 (0.1-0.6) K/mm3 Eos # (Auto) 0.1 (0-0.3) K/mm3 Baso # (Auto) 0.1 (0.0-0.1) K/mm3 Abs Immat Gran (auto) 0.03 (0.00-0.031) K/mm3 Absolute Neuts (auto) 7.1 H (1.3-6.7) K/mm3 Absolute Nucleated RBC 0.000 (0.0-0.012) K/mm3 Nucleated RBC % 0.0 (0.0-0.2) % PT 14.1 (11.1-14.7) Seconds INR 1.1 APTT 29.2 (22.3-36.8) Seconds Sodium 139 (137-145) mmol/L Potassium 4.2 (3.4-5.0) mmol/L Chloride 106 (98-107) mmol/L Carbon Dioxide 27 (22-30) mmol/L Anion Gap 6 (4-12) mmol/L BUN 11 (7-17) mg/dL Creatinine 0.68 L (0.7-1.0) mg/dL Estim Creat Clear Calc 149 ml/min Estimated GFR > 60 (59 - ) Glucose 103 (65-110) mg/dL Calcium 9.5 (8.4-10.2) mg/dL Magnesium 1.9 (1.6-2.3) mg/dL Total Bilirubin 0.3 (0.2-1.3) mg/dL AST 26 (14-36) U/L ALT 24 (6-35) U/L Alkaline Phosphatase 105 (38-126) U/L Troponin I < 0.012 (0.000-0.034) ng/mL Total Protein 7.7 (6.3-8.2) g/dL Albumin 4.4 (3.5-5.1) g/dL <Cris Antoine PA-C - Last Filed: 04/27/25 16:58> Lab Results 04/27/25 Range/Units 16:49 WBC 9.5 (4.5-10.0) K/mm3 RBC 5.12 (4.2-5.4) M/mm3 Hgb 14.2 (12.0-15.0) g/dL Hct 42.3 (37.0-47.0) % MCV 82.6 (80-100) fl MCH 27.7 (26-34) pg MCHC 33.6 (32-36) g/dl RDW 12.5 (11.5-14.5) % Plt Count 262 (150-375) k/mm3 MPV 11.6 H (7.4-10.4) fl Immature Gran % (Auto) 0.3 (0-0.5) % Neut % (Auto) 74.7 H (45.5-73.1) % Lymph % (Auto) 19.8 (18.3-44.2) % [place] % (Auto) 4.0 (2.6-8.5) % Eos % (Auto) 0.7 (0-4.4) % Baso % (Auto) 0.5 (0.2-1.2) % Lymph # (Auto) 1.87 (0.9-3.2) K/mm3 [place] # (Auto) 0.4 (0.1-0.6) K/mm3 Eos # (Auto) 0.1 (0-0.3) K/mm3 Baso # (Auto) 0.1 (0.0-0.1) K/mm3 Abs Immat Gran (auto) 0.03 (0.00-0.031) K/mm3 Absolute Neuts (auto) 7.1 H (1.3-6.7) K/mm3 Absolute Nucleated RBC 0.000 (0.0-0.012) K/mm3 Nucleated RBC % 0.0 (0.0-0.2) % PT 14.1 (11.1-14.7) Seconds INR 1.1 APTT 29.2 (22.3-36.8) Seconds Sodium 139 (137-145) mmol/L Potassium 4.2 (3.4-5.0) mmol/L Chloride 106 (98-107) mmol/L Carbon Dioxide 27 (22-30) mmol/L Anion Gap 6 (4-12) mmol/L BUN 11 (7-17) mg/dL Creatinine 0.68 L (0.7-1.0) mg/dL Estim Creat Clear Calc 149 ml/min Estimated GFR > 60 (59 - ) Glucose 103 (65-110) mg/dL Calcium 9.5 (8.4-10.2) mg/dL Magnesium 1.9 (1.6-2.3) mg/dL Total Bilirubin 0.3 (0.2-1.3) mg/dL AST 26 (14-36) U/L ALT 24 (6-35) U/L Alkaline Phosphatase 105 (38-126) U/L Troponin I < 0.012 (0.000-0.034) ng/mL Total Protein 7.7 (6.3-8.2) g/dL Albumin 4.4 (3.5-5.1) g/dL <Kaylin House PA-C - Last Filed: 04/27/25 20:01> Imaging Data Radiologist's impression: ITS Impressions Head CT 04/27/25 17:20 IMPRESSION: 1. Normal head CT. Cervical Spine CT 04/27/25 17:31 IMPRESSION: 1. Mild reversal of the normal cervical lordosis and 7 degree dextrocurvature which could be positional or due to muscle spasm. No other acute osseous abnormality. Chest X-Ray 04/27/25 17:33 IMPRESSION: 1. No acute cardiopulmonary disease. Knee X-Ray 04/27/25 17:34 IMPRESSION: 1. Negative left knee radiographs. <Cris Antoine PA-C - Last Filed: 04/27/25 16:58> ITS Impressions Head CT 04/27/25 17:20 IMPRESSION: 1. Normal head CT. Cervical Spine CT 04/27/25 17:31 IMPRESSION: 1. Mild reversal of the normal cervical lordosis and 7 degree dextrocurvature which could be positional or due to muscle spasm. No other acute osseous abnormality. Chest X-Ray 04/27/25 17:33 IMPRESSION: 1. No acute cardiopulmonary disease. Knee X-Ray 04/27/25 17:34 IMPRESSION: 1. Negative left knee radiographs. <Kaylin House PA-C - Last Filed: 04/27/25 20:01> ECG Data EKG #1: ECG completion date: 04/27/25 <DAYANNA Sharif Last Filed: 04/27/25 20:01> normal rate, sinus rhythm, no ST changes and normal QT <DAYANNA Sharif Last Filed: 04/27/25 20:01> Critical Care Time Critical Care Time Critical Care Time: No <DAYANNA Sharif Last Filed: 04/27/25 20:01> Discharge Plan Discharge Clinical Impression: Near syncope Head injury Qualifiers: Encounter type: initial encounter Qualified Code(s): S09.90XA - Unspecified injury of head, initial encounter <Cris Antoine PA-C - Last Filed: 04/27/25 16:58> Patient Disposition: Home <DAYANNA Norman Last Filed: 04/27/25 16:58> Condition: Improved <DAYANNA Norman Last Filed: 04/27/25 16:58> Instructions: Head Injury (ED), Near Syncope (ED) <DAYANNA Norman Last Filed: 04/27/25 16:58> Additional Instructions: Return to the emergency department if you experience fever, chest pain, shortness of breath, abdominal pain with nausea and vomiting, weakness, numbness, or any other symptoms that are concerning to you. Rest. Remain well hydrated. Tylenol or Ibuprofen as needed for pain Follow up with primary care doctor <DAYANNA Norman Last Filed: 04/27/25 16:58> Patient Language: Tristanian <DAYANNA Norman Last Filed: 04/27/25 16:58> Follow-up/Referrals: PHYSICIAN NOT ON STAFF,NONSTAFF [Primary Care Provider] Jayant Yepez MD [Physician, Family Practice] <DAYANNA Norman Last Filed: 04/27/25 16:58>
[2025-04-27 17:02] LABS: Hematocrit 42.3 % (37.0-47.0); Hemoglobin 14.2 g/dL (12.0-15.0); Immature Granulocyte Percent A 0.3 % (0-0.5); Lymphocytes Absolute Auto 1.87 K/mm3 (0.9-3.2); Mean Corpuscular HGB Conc 33.6 g/dl (32-36); Mean Corpuscular Hemoglobin 27.7 pg (26-34); Mean Corpuscular Volume 82.6 fl (80-100); Nucleated Red Blood Cells Absolute Auto 0.000 K/mm3 (0.0-0.012); Nucleated Red Blood Cells Perc 0.0 % (0.0-0.2); Platelet Count Result 262 k/mm3 (150-375); Red Blood Count 5.12 M/mm3 (4.2-5.4); White Blood Count 9.5 K/mm3 (4.5-10.0)
[2025-04-27 17:03] LABS: Alanine Aminotransferase 24 U/L (6-35); Albumin Level 4.4 g/dL (3.5-5.1); Alkaline Phosphatase 105 U/L (38-126); Anion Gap 6 mmol/L (4-12); Aspartate Amino Transferase 26 U/L (14-36); Bilirubin,Total 0.3 mg/dL (0.2-1.3); Blood Urea Nitrogen 11 mg/dL (7-17); Calcium 9.5 mg/dL (8.4-10.2); Carbon Dioxide 27 mmol/L (22-30); Chloride 106 mmol/L (98-107); Estimated CRCL calculation 149 ml/min; Estimated Glomerular Filt Rate > 60; Glucose 103 mg/dL (65-110); Magnesium 1.9 mg/dL (1.6-2.3); Potassium 4.2 mmol/L (3.4-5.0); Sodium 139 mmol/L (137-145); Total Protein 7.7 g/dL (6.3-8.2)
[2025-04-27 17:08] LABS: INR 1.1; Prothrombin Time 14.1 Seconds (11.1-14.7)
[2025-04-27 17:09] LABS: Partial Thromboplastin Time 29.2 Seconds (22.3-36.8)
[2025-04-27 17:15] LABS: Troponin I < 0.012 ng/mL (0.000-0.034)
[2025-04-27 18:50] VITALS: BP 119/71; PULSE 78; RESP 16; O2SAT 99
[2025-04-27 18:57] VITALS: BP 98/45; PULSE 80
[2025-04-27 18:58] VITALS: BP 118/80; PULSE 88
[2025-04-27] MEDS: LACTATED RINGERS 1,000 ML 999 ML IV CONT (19:01)
--- OUTSIDE RECORDS SUMMARY | 2025-04-27 19:03 | XMS_ITS | Clinical Summary ---
Author Organization [facility] Address [address] [place] [address] Care Team Providers Care Trust Manager Assistant Name Role Phone Tenisha Fletcher MD Unavailable Sterling Monson MD [facility] Care Provider Source Comments [facility],non-owned Affiliates and Associated Physician Practices is amultiple site organization consisting of ambulatory clinics and hospital sitesin [place], [place], [place] and [place]. This disclosure is being madepursuant to the Care Everywhere program and may not contain all information available regarding this patient. Last updated 18.[facility] Exent Allergies No known active allergies Medications * [...] CDT): A&P - bladder and bowel dysfunction. Ortzi has continued to do well since starting [...] recommendations including wiggle and wick Future considerations: audio visual production specialist or healthy weight program, pelvic floor therapy for possible stress incontinence Sepsis due to urinary tract infection 06/29/2020 Assessment & Plan (07/01/2020 9:47 AM PREPARED FOODS SERVICE TEAM MEMBER): Assessment: Ortiz Alvares is a 15 year [...] -SLIV Assessment & Plan (06/30/2020 9:27 AM PREPARED FOODS SERVICE TEAM MEMBER): Assessment: Ortiz Alvares is a 15 year [...] 05/04/2020 Assessment & Plan (07/01/2020 9:48 AM PREPARED FOODS SERVICE TEAM MEMBER): Assessment: 15 year old female with history [...] complete Assessment & Plan (06/30/2020 9:29 AM PREPARED FOODS SERVICE TEAM MEMBER): Assessment: 15 year old female with history [...] complete Assessment & Plan (06/29/2020 3:27 AM PREPARED FOODS SERVICE TEAM MEMBER): Assessment: 15 year old female with history [...] results. Assessment & Plan (05/05/2020 3:49 AM PREPARED FOODS SERVICE TEAM MEMBER): Assessment: 15 year old female with history [...] 07/13/2020 Assessment & Plan (07/01/2020 9:48 AM PREPARED FOODS SERVICE TEAM MEMBER): Assessment: Patient with poor PO intake and GI losses with frequent emesis and decreased UOP concerning for dehydration. Vitals with tachycardia and intermittent hypotension that has responded to fluid boluses. Clinically appeared dehydrated. Improved with fluid resuscitation. Resolved. Assessment & Plan (06/29/2020 7:36 AM PREPARED FOODS SERVICE TEAM MEMBER): Assessment: Patient with poor PO intake and [...] Inhaled Oxygen Concentration 100% 07/2019 12:25 PM PREPARED FOODS SERVICE TEAM MEMBER Weight 130.2 kg (287 lb 0.6 oz) [...] this topic Medical Devices Implanted Type Area Software Security Consultant Device Identifier Shelf Expiration Date Model / Serial / Lot Graft Bone Alfs Dbm 5ml Ptty Frzdr Implanted:Qty: 1 on 04/10/2017 by Stef Underwood MD at [facility] Left: Leg Nuvasive 06/26/2018 [id number] / / [id number] Procedures Procedure Name Priority Date/Time Associated Diagnosis Comments CHLAMYDIA + GC AMPLIFIED PROBE STAT 08/19/2020 10:10 PM CDT from Last 3 Months or Most Recently Relevant to Health Maintenance Results * CHLAMYDIA + GC AMPLIFIED PROBE (STL) (08/19/2020 10:10 PM CDT) Chlamydia Amplified Probe Negative Negative 08/20/2020 10:20 AM CDT [facility] GC Amplified Probe Negative Negative 08/20/2020 10:20 AM CDT [facility] Microbiology URINE / Unknown Collection / Unknown 08/19/2020 10:10 PM CDT 08/19/2020 10:24 PM CDT Narrative [facility] - 08/20/2020 10:20 AM CDT Results based on detection/no detection of ribosomal RNA by amplified method. us Ronnie Sandy MD LAB - MICROBIOLOGY ORDERABLES Final Result [facility] [address] [place] [address], [facility] [phone] from Last 3 Months or Most Recently Relevant to Health Maintenance Insurance [facility] Advance Directives * Full Code (Latest Code Status on File) Date Activated Date Inactivated Comments 08/19/2020 11:45 PM 08/21/2020 5:08 PM * Full Code Date Activated Date Inactivated Comments 06/29/2020 10:58 AM 07/01/2020 2:21 PM * Full Code Date Activated Date Inactivated Comments 05/05/2020 2:58 AM 05/05/2020 6:49 PM Care Teams Trust Manager Assistant Relationship Specialty Start Date End Date Sterling Monson MD [address] [place] [phone] PCP - General 12/07/20 Tenisha Fletcher MD [address] [place] [phone] Student Resident 10/26/17
--- OUTSIDE RECORDS SUMMARY | 2025-04-27 19:03 | XMS_ITS | Encounter Summary ---
Author Organization [facility] Address [address] [place] [address] Care Team Providers Care Supervisor Blasting Name Role Phone Tenisha Fletcher MD Unavailable Sterling Monson MD [facility] Care Provider Encounter Details Date Type Department Care Team (Late st Contact Info) Description 08/10/2021 Telephone [facility] - Urology [address] [place] [id number] Christine Velazco PA-C [address] [place] [phone] Social History Tobacco Use Types Packs/Day Years [...] on filedocumented in this encounter Care Teams Supervisor Blasting Relationship Specialty Start Date End Date Sterling Monson MD [address] [place] [phone] PCP - General 12/07/20 Tenisha Fletcher MD [address] [place] [address] Student Resident 10/26/17 documented as of this encounter
--- OUTSIDE RECORDS SUMMARY | 2025-04-27 19:03 | XMS_ITS | Encounter Summary ---
Author Organization [facility] Address [address] [facility] [place] [address] Care Team Providers Care Tuber Machine Operator Helper Name Role Phone Tenisha Fletcher MD Unavailable Sterling Monson MD Prima ry Care Provider Unknown, Provider Primary Care Provider Unavaila ble Sterling Monson MD Prima ry Care Provider Encounter Details Date Type Department Care Team (Late st Contact Info) Description 05/31/2019 Telephone [facility] - [address] [id number] Mirna Shin MD [address] [place] [id number] Social History Tobacco Use Types Packs/Day Years [...] Charley Rehman RN - 06/07/2019 3:56 PM HEAVY EQUIPMENT DIESEL MECHANIC Verified orders in epic. Prep letter mailed to home address. Y EQUIPMENT DIESEL MECHANIC * Telephone Encounter - Staci Milner - 06/07/2019 2:49 PM CST EGD/Colon rescheduled for Friday06/30/19 at 11:[address] Shin. Mom already has all instructions. Y EQUIPMENT DIESEL MECHANIC * Telephone Encounter - Staci Milner - 05/31/2019 3:52 PM CST Endo called to have us reschedule pt's EGD/Colon, since pt did not perform any of the prep. Mom's NEW number is [phone]. Y EQUIPMENT DIESEL MECHANIC documented in this encounter Plan of Treatment Not on file documented as of this encounter Visit Diagnoses Not on filedocumented in this encounter Care Teams Tuber Machine Operator Helper Relationship Specialty Start Date End Date Sterling Monson MD [address] [place] [phone] PCP - General Pediatrics 07/27/18 09/20/20 Unknown, Provider [address] [place] [phone] PCP - General 11/29/2012/06 Sterling Monson MD [address] [place] [phone] PCP - General 12/07/20 Tenisha Fletcher MD [facility] [place] [phone] Student Resident 10/26/17 documented as of this encounter
[2025-04-27] MEDS: ACETAMINOPHEN 500 MG TABLET 1000 MG PO (19:30)
[2025-04-27 20:04] LABS: BEDSIDEPREGUCG Negative (Negative)
[2025-04-27 20:22] VITALS: BP 112/78; PULSE 86; RESP 18; O2SAT 100
== END 2025-04-27 20:23 | disposition home or self-care (01) ==
PROVIDERS: Physician Assistant; Emergency Provider Physician Assistant
DX: R55 Syncope and collapse (principal); S09.90XA Unspecified injury of head, initial encounter; W18.30XA Fall on same level, unspecified, initial encounter; I10 Essential (primary) hypertension; K21.9 Gastro-esophageal reflux disease without esophagitis
CPT/HCPCS: 36415; 70450; 71046; 72125; 73562; 80053; 81025; 83735; 84484; 85025; 85610; 85730; 93005; 96360; 99284; A9270; J7120